=== PATIENT | female | born 1960 | race Caucasian/White ===

== ENCOUNTER 2022-11-02 19:12 | Observation (INO) | payer OTHER ==
[2022-11-02] MEDS ORDERED: ONDANSETRON 4 MG/2 ML VIAL IVPB ONE (20:16)
[2022-11-02] MEDS ORDERED: ACETAMINOPHEN 1000 MG/100 ML BAG IVPB ONE (20:16)
[2022-11-02] MEDS ORDERED: SODIUM CHLORIDE 0.9% 500 ML INFUS.BAG IV ONE (21:09)
[2022-11-02 21:28] LABS: BASO % 0.2 % (0-2.0); EOS % 0.3 % (0-4.5); HEMATOCRIT 37.6 % (32.4-45.2); HEMOGLOBIN 13.1 GM/dL (10.7-15.3); LYMPH % 8.5 % (8-40); MCH 30.4 pg (25.7-33.7); MCHC 34.8 g/dl (32.0-36.0); MEAN CELL VOLUME 87.4 fl (80-96); MEAN PLT VOLUME 8.3 fl (7.5-11.1); MONO % 8.7 % (3.8-10.2); NEUT % 82.3 % (42.8-82.8); PLATELET COUNT 199 10^3/uL (134-434); RBC 4.31 M/mm3 (3.60-5.2); RDW 13.4 % (11.6-15.6); WHITE BLOOD COUNT 7.6 K/mm3 (4.0-10.0)
[2022-11-02 21:31] LABS: INR 1.07 (0.83-1.09); PROTHROMBIN TIME (PATIENT) 12.3 SEC (9.7-13.0)
[2022-11-02 21:34] LABS: ACTIVATED PTT 29.6 SECONDS (25.2-36.5)
[2022-11-02 21:47] LABS: ALBUMIN 4.1 g/dl (3.4-5.0); BLOOD UREA NITROGEN 11.6 mg/dL (7-18)
[2022-11-02 21:49] LABS: CREATININE 0.7 mg/dL (0.55-1.3)
[2022-11-02 21:52] LABS: TOT PROT 7.3 g/dl (6.4-8.2)
[2022-11-02 22:39] VITALS: BP 102/63; RESP 18; BMI 23.6
[2022-11-02 22:40] VITALS: PULSE 76; TEMP 99.7
[2022-11-02] MEDS ORDERED: SODIUM CHLORIDE 0.45% 1,000 ML IV SCH (23:15)
[2022-11-02] MEDS ORDERED: ONDANSETRON 4 MG/2 ML VIAL IVPUSH PRN (23:15)
[2022-11-03] MEDS: KCL 10 MEQ IVPB 10 MEQ/100 ML INFUS.BAG IVPB SCH ×3 (01:38→04:05)
[2022-11-03] MEDS ORDERED: REMDESIVIR 200 MG in SODIUM CHLORIDE 250 ML IVPB ONE (03:15)
[2022-11-03] MEDS ORDERED: ACETAMINOPHEN 1000 MG/100 ML BAG IVPB ONE (05:36)
[2022-11-03] MEDS ORDERED: ACETAMINOPHEN INJECTION 100 ML IVPB ONE (05:37)
[2022-11-03] MEDS ORDERED: LEVOTHYROXINE NA 75 MCG TABLET (FP) PO SCH (07:00)
[2022-11-03] MEDS ORDERED: LEVOTHYROXINE NA 75 MCG TABLET (FP) ONE (08:44)
[2022-11-03 08:46] LABS: BASO % 0.1 % (0-2.0); HEMATOCRIT 38.6 % (32.4-45.2); HEMOGLOBIN 13.1 GM/dL (10.7-15.3); LYMPH % 11.1 % (8-40); MCH 29.8 pg (25.7-33.7); MCHC 33.9 g/dl (32.0-36.0); MEAN CELL VOLUME 87.7 fl (80-96); MEAN PLT VOLUME 8.5 fl (7.5-11.1); MONO % 6.6 % (3.8-10.2); NEUT % 82.2 % (42.8-82.8); PLATELET COUNT 214 10^3/uL (134-434); RDW 13.7 % (11.6-15.6); WHITE BLOOD COUNT 5.9 K/mm3 (4.0-10.0)
[2022-11-03] MEDS ORDERED: ENOXAPARIN NA (PORCINE) 40 MG/0.4 ML DISP.SYRIN SQ ONE (09:04)
[2022-11-03 09:06] LABS: ALBUMIN 3.7 g/dl (3.4-5.0); BLOOD UREA NITROGEN 10.1 mg/dL (7-18); CALCIUM 8.4 mg/dL (8.5-10.1); MAGNESIUM 2.1 mg/dL (1.8-2.4)
[2022-11-03 09:08] LABS: CREATININE 0.6 mg/dL (0.55-1.3)
[2022-11-03 09:10] LABS: PHOSPHOROUS 3.2 mg/dL (2.5-4.9)
[2022-11-03 09:11] LABS: BILIRUBIN,TOTAL 0.6 mg/dL (0.2-1)
[2022-11-03] MEDS ORDERED: metoPROLOL SUCCINATE 25 MG TAB.SR.24H (FP) PO ONE (09:29)
[2022-11-03] MEDS ORDERED: FUROSEMIDE 40 MG TABLET (FP) ONE (09:29)
[2022-11-03] MEDS ORDERED: LISINOPRIL 20 MG TABLET ONE (09:29)
[2022-11-03] MEDS ORDERED: ENOXAPARIN NA (PORCINE) 40 MG/0.4 ML DISP.SYRIN SQ SCH (10:00)
== END 2022-11-03 16:30 | disposition home or self-care (01) ==
LOC: JER 19:12 → JERBED 22:47
PROVIDERS: ADMIT Internal Medicine; ATTEND Internal Medicine
PROC: 3E033NZ Introduction of Analgesics, Hypnotics, Sedatives into Peripheral Vein, Percutaneous Approach (ICD-10-PCS; principal; 2022-11-02)
PROC: 3E023GC Introduction of Other Therapeutic Substance into Muscle, Percutaneous Approach (ICD-10-PCS; 2022-11-02)
PROC: 3E033GC Introduction of Other Therapeutic Substance into Peripheral Vein, Percutaneous Approach (ICD-10-PCS; 2022-11-02)
PROC: 3E0337Z Introduction of Electrolytic and Water Balance Substance into Peripheral Vein, Percutaneous Approach (ICD-10-PCS; 2022-11-02)
DX: U07.1 COVID-19 (principal); R55 Syncope and collapse; E87.6 Hypokalemia; R50.9 Fever, unspecified; R05.9 Cough, unspecified; I10 Essential (primary) hypertension; E03.9 Hypothyroidism, unspecified; Z87.440 Personal history of urinary (tract) infections; R42 Dizziness and giddiness; N12 Tubulo-interstitial nephritis, not specified as acute or chronic; Z29.8 Encounter for other specified prophylactic measures; Z91.018 Allergy to other foods; F17.210 Nicotine dependence, cigarettes, uncomplicated
CPT/HCPCS: 0241U-QW; 36415; 70450-TC; 71045-TC-FY; 72125-TC; 80053; 80061; 82550; 83036; 83735; 84100; 84443; 84484; 85025; 85610; 85730; 93005; 93010; 97116-GP; 97161-GP; 99285-25; C9399; G0378